=== PATIENT | female | born 1985 | race Caucasian/White ===

== ENCOUNTER 2023-08-21 00:35 | Observation (INO) | payer OTHER ==
--- NOTE | 2023-08-21 00:51 | ED ---
General Adult HPI - General Stated complaint: Altered Mental Time Seen by Provider: 08/21/23 00:48 - History of Present Illness Initial comments: Is a 38-year-old female who reports a history of alcohol abuse sent to the emergency department today from [facility] for evaluation of altered mental status. Staff at [facility] had reported to us that she has been reversed for over 24 hours seemed to be appropriate for first 24 hours and has become pro gressively more confused and having odd behavior so they sent her to the ER for evaluation. Patient states that she is there under her own free will she is allowed to leave ad frankie., she states that she left at 3 AM and have alcohol. Upon arrival patient believes she is in [facility] cannot tell us the year does know she is at [facility] does know that she is an alcoholic. Denies other drug use. - Related Data Allergies Allergy/AdvReac Type Severity Reaction Status Date / Time Penicillins Allergy Rash/Hives Verified 08/21/23 01:17 Review of Systems ROS Statement: Those systems with pertinent positive or pertinent negative responses have been documented in the HPI. ROS Other: All systems not noted in ROS Statement are negative. General Exam - General Exam Comments Initial Comments: Physical Exam GENERAL: Patient is well-developed and well-nourished. Patient is nontoxic and well-hydrated and is in no distress. HENT: Normocephalic, Atraumatic. EYES: PERRL, EOMI PULMONARY: Unlabored respirations. CARDIOVASCULAR: RRR Warm and well perfused extremities ABDOMEN: Non-distended SKIN: No rashes or bruising : Deferred NEUROLOGIC: Alert and oriented to person only Normal speech Normal gait MUSCULOSKELETAL: Moving all extremities with no apparent injury PSYCHIATRIC: No SI/HI Course Vital Signs 08/21/23 08/21/23 00:51 06:32 Temperature 98.7 F Pulse Rate 85 55 L Respiratory 18 16 Rate Blood Pressure 116/75 110/77 O2 Sat by Pulse 97 95 Oximetry EKG Findings - EKG Comments: EKG Findings:: EKG interpreted by me EKG obtained as part of the altered mental status workup EKG obtained at 1:49 AM rate is 60 rhythm is sinus with a short WA WA 106 QRS 82 QTc [address] elevations or depressions no evidence of ischemia or infarction. - EKG Results: EKG: interpreted by JEFF Medical Decision Making - Medical Decision Making Was pt. sent in by a medical professional or institution (, WILLI, INTEGRATED SPECIALIST, urgent care, hospital, or care home...) When possible be specific @ -Yes sent from [facility] Did you speak to anyone other than the patient for history (EMS, parent, family, police, friend...)? What history was obtained from this source [facility] Did you review nursing and triage notes (agree or disagree)? Why? @ -I reviewed and agree with nursing and triage notes Were old charts reviewed (outside hosp., previous admission, EMS record, old EKG, old radiological studies, urgent care reports/EKG's, care home records)? Report findings @ -No old charts available Differential Diagnosis (chest pain, altered mental status, abdominal pain women, abdominal pain men, vaginal bleeding, weakness, fever, dyspnea, syncope, headache, dizziness, GI bleed, back pain, seizure, CVA, palpatations, mental health)? @ -Differential Altered Mental Status: Hypoglycemia, DKA, hypercapnia, ETOH, overdose, CO poisoning, trauma, myxedema coma, HTN encephalopathy, infection, encephalitis, psychosis, intercranial hemorrhage, hepatic encephalopathy, meningitis, CVA, this is not meant to be an all-inclusive list EKG interpreted by me (3pts min.). @ -As above X-rays interpreted by me (1pt min.). @ -None done CT interpreted by me (1pt min.). @ -CT head with no acute findings, no mass no bleed U/S interpreted by me (1pt. min.). @ -None done What testing was considered but not performed or refused? (CT, X-rays, U/S, labs)? Why? @ -None What meds were considered but not given or refused? Why? @ -None Did you discuss the management of the patient with other professionals (professionals i.e. , WILLI, INTEGRATED SPECIALIST, lab, RT, psych nurse, social studies teacher, circular sawyer stone, teacher, boat officer, case monitor)? Give summary @ -No Was smoking cessation discussed for >3mins.? @ -No Was critical care preformed (if so, how long)? @ -No Were there social determinants of health that impacted care today? How? (Homelessness, low income, unemployed, alcoholism, drug addiction, transportation, low edu. Level, literacy, decrease access to med. care, fpc, rehab)? @ -No Was there de-escalation of care discussed even if they declined (Discuss DNR or withdrawal of care, Hospice)? DNR status @ -No What co-morbidities impacted this encounter? (DM, HTN, Smoking, COPD, CAD, Cancer, CVA, ARF, Chemo, Hep., AIDS, mental health diagnosis, sleep apnea, morbid obesity)? @ -None Was patient admitted / discharged? Hospital course, mention meds given and route, prescriptions, significant lab abnormalities, going to OR and other pertinent info. @ -Admit The patient was seen and evaluated, history is obtained from the patient, EMS and staff at [facility]. Patient offers no real meaningful history she does admit to being an alcohol user states she had last drink in the past 24 hours. Labs and head CT were obtained. Blood work is relatively unremarkable, urinalysis has patient positive for multiple drugs I suspect her altered mental status is due to polypharmacy. We will place the patient in the observation to allow her to sober up and reassess her mental status. Undiagnosed new problem with uncertain prognosis? @ -No Drug Therapy requiring intensive monitoring for toxicity (Heparin, Nitro, Insulin, Cardizem)? @ -No Were any procedures done? @ -No Diagnosis/symptom? @ -Altered mental status Acute, or Chronic, or Acute on Chronic? @ -Acute Uncomplicated (without systemic symptoms) or Complicated (systemic symptoms)? @ -Default Side effects of treatment? @ -No Exacerbation, Progression, or Severe Exacerbation? @ -No Poses a threat to life or bodily function? How? (Chest pain, USA, ND, pneumonia, PE, COPD, DKA, ARF, appy, cholecystitis, CVA, Diverticulitis, Homicidal, Suicidal, threat to staff... and all critical care pts) @ -No - Lab Data Result diagrams: 08/21/23 01:14 08/21/23 01:14 Lab Results 08/21/23 08/21/23 08/21/23 Range/Units 01:14 01:14 01:14 WBC 8.7 (3.8-10.6) k/uL RBC 3.75 L (3.80-5.40) m/uL Hgb 12.2 (11.4-16.0) gm/dL Hct 36.7 (34.0-46.0) % MCV 97.8 (80.0-100.0) fL MCH 32.6 (25.0-35.0) pg MCHC 33.3 (31.0-37.0) g/dL RDW 13.8 (11.5-15.5) % Plt Count 143 L (150-450) k/uL MPV 7.4 Neutrophils % 70 % Lymphocytes % 23 % Monocytes % 5 % Eosinophils % 1 % Basophils % 1 % Neutrophils # 6.0 (1.3-7.7) k/uL Lymphocytes # 2.0 (1.0-4.8) k/uL Monocytes # 0.4 (0-1.0) k/uL Eosinophils # 0.1 (0-0.7) k/uL Basophils # 0.0 (0-0.2) k/uL PT 10.5 (10.0-12.5) sec INR 0.9 (<1.2) APTT 22.8 (22.0-30.0) sec Sodium 137 (137-145) mmol/L Potassium 4.2 (3.5-5.1) mmol/L Chloride 103 (98-107) mmol/L Carbon Dioxide 28 (22-30) mmol/L Anion Gap 6 mmol/L BUN 18 H (7-17) mg/dL Creatinine 0.67 (0.52-1.04) mg/dL Est GFR (CKD-EPI)AfAm >90 (>60 ml/min/1.73 sqM) Est GFR (CKD-EPI)NonAf >90 (>60 ml/min/1.73 sqM) Glucose 86 (74-99) mg/dL POC Glucose (mg/dL) (70-110) mg/dL POC Glu Tool [employer] Level Five ID Calcium 10.1 (8.4-10.2) mg/dL Total Bilirubin 0.7 (0.2-1.3) mg/dL AST 56 H (14-36) U/L ALT 29 (4-34) U/L Alkaline Phosphatase 60 (38-126) U/L Ammonia (<30) umol/L Total Protein 6.9 (6.3-8.2) g/dL Albumin 4.2 (3.5-5.0) g/dL Urine Opiates Screen (NotDetected) Ur Oxycodone Screen (NotDetected) Urine Methadone Screen (NotDetected) Ur Barbiturates Screen (NotDetected) U Tricyclic Antidepress (NotDetected) Ur Phencyclidine Scrn (NotDetected) Ur Amphetamines Screen (NotDetected) U Methamphetamines Scrn (NotDetected) U Benzodiazepines Scrn (NotDetected) Urine Cocaine Screen (NotDetected) U Marijuana (THC) Screen (NotDetected) Serum Alcohol <10 mg/dL 08/21/23 08/21/23 08/21/23 Range/Units 02:00 04:47 06:49 WBC (3.8-10.6) k/uL RBC (3.80-5.40) m/uL Hgb (11.4-16.0) gm/dL Hct (34.0-46.0) % MCV (80.0-100.0) fL MCH (25.0-35.0) pg MCHC (31.0-37.0) g/dL RDW (11.5-15.5) % Plt Count (150-450) k/uL MPV Neutrophils % % Lymphocytes % % Monocytes % % Eosinophils % % Basophils % % Neutrophils # (1.3-7.7) k/uL Lymphocytes # (1.0-4.8) k/uL Monocytes # (0-1.0) k/uL Eosinophils # (0-0.7) k/uL Basophils # (0-0.2) k/uL PT (10.0-12.5) sec INR (<1.2) APTT (22.0-30.0) sec Sodium (137-145) mmol/L Potassium (3.5-5.1) mmol/L Chloride (98-107) mmol/L Carbon Dioxide (22-30) mmol/L Anion Gap mmol/L BUN (7-17) mg/dL Creatinine (0.52-1.04) mg/dL Est GFR (CKD-EPI)AfAm (>60 ml/min/1.73 sqM) Est GFR (CKD-EPI)NonAf (>60 ml/min/1.73 sqM) Glucose (74-99) mg/dL POC Glucose (mg/dL) 99 (70-110) mg/dL POC Glu Tool And Die Maker Level Five ID Jose Raya Calcium (8.4-10.2) mg/dL Total Bilirubin (0.2-1.3) mg/dL AST (14-36) U/L ALT (4-34) U/L Alkaline Phosphatase (38-126) U/L Ammonia 17 (<30) umol/L Total Protein (6.3-8.2) g/dL Albumin (3.5-5.0) g/dL Urine Opiates Screen Not Detected (NotDetected) Ur Oxycodone Screen Not Detected (NotDetected) Urine Methadone Screen Detected H (NotDetected) Ur Barbiturates Screen Not Detected (NotDetected) U Tricyclic Antidepress Detected H (NotDetected) Ur Phencyclidine Scrn Not Detected (NotDetected) Ur Amphetamines Screen Detected H (NotDetected) U Methamphetamines Scrn Not Detected (NotDetected) U Benzodiazepines Scrn Detected H (NotDetected) Urine Cocaine Screen Not Detected (NotDetected) U Marijuana (THC) Screen Detected H (NotDetected) Serum Alcohol mg/dL Disposition Clinical Impression: Altered mental status, Polysubstance abuse, Encephalopathy Disposition: ADMITTED IP TO THIS [facility] Condition: Stable Referrals: None,Stated [Primary Care Provider] - 1-2 days
[2023-08-21 01:35] LABS: Basophils % (A) 1 %; Eosinophils # (A) 0.1 k/uL (0-0.7); Eosinophils % (A) 1 %; HCT 36.7 % (34.0-46.0); HGB 12.2 gm/dL (11.4-16.0); Lymphocytes % (A) 23 %; MCH 32.6 pg (25.0-35.0); MCHC 33.3 g/dL (31.0-37.0); MCV 97.8 fL (80.0-100.0); Mean Platelet Volume 7.4; Monocytes # (A) 0.4 k/uL (0-1.0); Monocytes % (A) 5 %; Neutrophils % (A) 70 %; Platelet Count 143 k/uL (150-450); RBC 3.75 m/uL (3.80-5.40); RDW 13.8 % (11.5-15.5); WBC 8.7 k/uL (3.8-10.6)
[2023-08-21 01:47] LABS: ALT 29 U/L (4-34); AST 56 U/L (14-36); African American GFR (CKD) >90 (>60 ml/min/1.73 sqM); Albumin 4.2 g/dL (3.5-5.0); Alcohol <10 mg/dL; Alkaline Phosphatase 60 U/L (38-126); Anion Gap 6 mmol/L; Blood Urea Nitrogen 18 mg/dL (7-17); Calcium 10.1 mg/dL (8.4-10.2); Carbon Dioxide 28 mmol/L (22-30); Chloride 103 mmol/L (98-107); Glucose 86 mg/dL (74-99); Non-African American GFR(CKD) >90 (>60 ml/min/1.73 sqM); Potassium 4.2 mmol/L (3.5-5.1); Sodium 137 mmol/L (137-145); Total Bilirubin 0.7 mg/dL (0.2-1.3); Total Protein 6.9 g/dL (6.3-8.2)
[2023-08-21 01:57] LABS: INR 0.9 (<1.2)
[2023-08-21 01:58] LABS: Partial Thromboplastin Time 22.8 sec (22.0-30.0); Prothrombin Time 10.5 sec (10.0-12.5)
[2023-08-21 02:02] LABS: Glucose,Whole Blood 99 mg/dL (70-110)
--- NOTE | 2023-08-21 02:05 | XR ---
EXAM: XR Chest, 2 Views CLINICAL HISTORY: ITS.REASON XR Reason: altered mental status TECHNIQUE: Frontal and lateral views of the chest. COMPARISON: No relevant prior studies available. FINDINGS: Lungs: Unremarkable. No consolidation. Pleural space: Unremarkable. No pleural effusion or pneumothorax. Heart: Unremarkable. No cardiomegaly or pulmonary vascular congestion. Bones/joints: No acute fracture. No dislocation. IMPRESSION: No evidence of acute cardiopulmonary disease.
[2023-08-21] MEDS: SODIUM CHLORIDE 0.9% 500 ML 500 ML IV ONE (03:08)
[2023-08-21 06:42] VITALS: RESP 16
[2023-08-21 07:07] LABS: Amphetamine Screen,Urine Detected (NotDetected); Benzodiazepines Screen,Urine Detected (NotDetected); Cocaine Screen,Urine Not Detected (NotDetected); Opiate Screen,Urine Not Detected (NotDetected); Phencyclidine Screen,Urine Not Detected (NotDetected); Tricyclic Antidepressant,Urine Detected (NotDetected)
[2023-08-21 07:08] LABS: Barbiturate Screen,Urine Not Detected (NotDetected); Methadone Screen, Urine Detected (NotDetected); Oxycodone Screen, Urine Not Detected (NotDetected); Urn Cannabinoid Scrn Detected (NotDetected)
--- NOTE | 2023-08-21 07:37 | CT ---
EXAMINATION TYPE: CT brain wo con DATE OF EXAM: 08/21/2023 COMPARISON: INDICATION: AMS/etoh withdrawal - brought by EMS from [facility] States last drink was 0637 Wednesday morning Pt. believes that we are in [facility] DLP: 1079.8 mGycm, Automated exposure control for dose reduction was used. CONTRAST: None CT of the brain is performed utilizing 3 mm thick sections through the posterior fossa and 3 mm thick sections through the remaining calvarium. Study is performed within 24 hours of arrival to the hosp ital. No abnormal hyperdensity is present to suggest an acute intracranial hemorrhage. No mass lesion is evident. No acute infarcts are evident. Ventricles and sulci are appropriate for the patient age. There is left septal deviation. Opacification of the posterior left ethmoid air cells noted. Remainin g paranasal sinuses and mastoid air cells are clear. IMPRESSION: 1. No acute intracranial process is radiographically apparent. Follow-up MRI can be performed as cl inically indicated
[2023-08-21] MEDS ORDERED: NALOXONE 0.4 MG/ML 1 ML VIAL IV PRN (08:12)
[2023-08-21] MEDS ORDERED: LORazepam 2 MG/ML INJ IV PRN ×4 (08:22)
[2023-08-21] MEDS ORDERED: diphenhydrAMINE 25 MG CAP PO PRN (10:23)
[2023-08-21] MEDS ORDERED: IBUPROFEN 600 MG TAB PO PRN (10:23)
[2023-08-21] MEDS ORDERED: MAG HYDROX/AL HYDROX/SIMETH 30 ML CUP PO PRN (10:23)
[2023-08-21] MEDS ORDERED: DOCUSATE 100 MG CAP PO PRN (10:23)
[2023-08-21] MEDS ORDERED: ACETAMINOPHEN TAB 325 MG TAB PO PRN (10:23)
[2023-08-21] MEDS ORDERED: ONDANSETRON 4 MG TAB PO PRN (10:23)
[2023-08-21] MEDS ORDERED: LOPERAMIDE 2 MG CAP PO PRN (10:23)
[2023-08-21] MEDS ORDERED: LORazepam 1 MG TAB PO PRN (10:23)
[2023-08-21] MEDS ORDERED: HYOSCYAMINE SULFATE 0.125 MG TAB PO PRN (10:23)
[2023-08-21] MEDS ORDERED: MULTIVITAMINS, THERA 1 EACH TAB PO PRN (10:23)
[2023-08-21] MEDS ORDERED: THIAMINE 100 MG TAB PO SCH (10:30)
[2023-08-21] MEDS: METHADONE 10 MG TAB PO STA (11:36)
[2023-08-21] MEDS: MULTIVITAMINS, THERA 1 EACH TAB PO SCH (11:36)
[2023-08-21] MEDS: FOLIC ACID 1 MG TAB PO SCH (11:36)
[2023-08-21] MEDS: buPROPion XL 150 MG TAB.ER.24H PO STA (11:36)
[2023-08-21] MEDS: THIAMINE 100 MG/ML 2 ML VIAL IM STA (11:40)
--- NOTE | 2023-08-21 11:52 | P.HPIM ---
History of Present Illness H&P Date: 08/21/23 Chief Complaint: Confusion 38-year-old woman with history of polysubstance abuse, chronic narcotic dependence on methadone therapy, presented from [place] due to episodes of confusion. The patient is a poor historian and is not clear as to why she was sent into the hospital. However from chart review, my understanding is that patient was sent in by staff after having showed some progressively confused and odd behavior. The patient herself reports that she feels totally back to normal, has had no visual hallucinations, confusion, episodes of disorientation since her observation admission began. She thinks it is possible that when the medication she received from [place] had caused a temporary bout of confusion and disorientation which prompted their concern. At this time, she has no complaints. Upon evaluation, patient was afebrile, 123/62, heart rate 62, 97% on room air. CBC was remarkable for mild thrombocytopenia to 143. Basic metabolic panel is unremarkable. Liver function test show an AST to ALT elevation of 2-1 with values of 56-29. Alcohol level is less than 10. Ammonia level was 17. Urine tox screen is positive for methadone, tricyclic antidepressants, amphetamines, benzodiazepines, marijuana. Brain CT was unremarkable. Chest x-ray had no evidence of acute cardiopulmonary disease. EKG showed normal sinus rhythm with short MO interval. All Systems reviewed and pertinent positives and negatives noted in HPI, all other symptoms are negative Gen: in no apparent distress, resting comfortably in bed Eyes: PERRL, no scleral injection or icterus HENT: normocephalic, atraumatic, good hearing acuity, moist mucous membranes Neck: no tracheal deviation, full range of motion Resp: good air exchange, breathing comfortably with no accessory muscle use, no tactile fremitus CVS: good distal perfusion x 4, no pitting edema GI: soft, NTTP, ND, no hepatosplenomegaly : no suprapubic tenderness, no CVAT, novak catheter not present MSK: no clubbing, no cyanosis, no noted contractures of extremities Skin: no noted rashes, petechiae; temperature of skin is appropriate Neuro: moving all extremities without signs of weakness, CN II-XII intact Psych: cooperative, euthymic mood, insight and judgment intact Labs and imaging as above Assessment/plan: Encephalopathy, metabolic Chronic narcotic dependence (Likely secondary to polypharmacy and polysubstance abuse) -Patient appears to be back to baseline -Continue to monitor on telemetry -Resume home medications: Seroquel, methadone, Wellbutrin -Decrease Ativan as needed on discharge Patient is full code Medications and Allergies Home Medications Medication Instructions Recorded Confirmed Type Acetaminophen [Tylenol] 650 mg PO QID PRN MDD 2,600mg 08/21/23 08/21/23 History Calcium, Magnesium, Zinc, With D3 1 tab PO TID 08/21/23 08/21/23 History Chlorpheniramine Maleate 4 mg PO Q4H PRN 08/21/23 08/21/23 History [Chlor-Trimeton] Docusate [Colace] 100 mg PO BID PRN 08/21/23 08/21/23 History Hyoscyamine Sulfate [Levsin] 0.125 mg PO QID PRN 08/21/23 08/21/23 History Ibuprofen [Motrin Ib] 600 mg PO Q6H PRN 08/21/23 08/21/23 History LORazepam [Ativan] 1 - 2 mg PO Q4H PRN 08/21/23 08/21/23 History Loperamide HCl [Imodium A-D] 4 mg PO QID PRN MDD 16 mg 08/21/23 08/21/23 History Methadone HCl [Methadone Intensol] 100 mg PO DAILY@0730 08/21/23 08/21/23 History Multivitamins, Thera [Multivitamin 1 tab PO DAILY PRN 08/21/23 08/21/23 History (formulary)] Mylanta Regular Strength 30 ml PO Q4H PRN 08/21/23 08/21/23 History QUEtiapine FUMARATE [SEROquel XR] 300 mg PO HS@2100 08/21/23 08/21/23 History Thiamine [Vitamin B-1] 100 mg PO DAILY PRN 08/21/23 08/21/23 History buPROPion XL [Wellbutrin XL] 150 mg PO DAILY@0615 08/21/23 08/21/23 History ondansetron HCL [Zofran] 8 mg PO Q6H PRN 08/21/23 08/21/23 History Allergies Allergy/AdvReac Type Severity Reaction Status Date / Time Penicillins Allergy Rash/Hives Verified 08/21/23 10:04 Physical Exam Osteopathic Statement: *. No significant issues noted on an osteopathic structural exam other than those noted in the History and Physical/Consult. Vitals: Vital Signs Temp Pulse Pulse Resp BP BP Pulse Ox 08/21/23 09:37 97.8 F 62 16 123/62 97 08/21/23 06:32 55 L 16 110/77 95 08/21/23 00:51 98.7 F 85 18 116/75 97 Intake and Output 08/20/23 08/21/23 08/21/23 22:59 06:59 14:59 Other: Weight 43.091 kg Results CBC & Chem 7: 08/21/23 01:14 08/21/23 01:14 Labs: Abnormal Lab Results - Last 24 Hours (Table) 08/21/23 08/21/23 08/21/23 Range/Units 01:14 01:14 06:49 RBC 3.75 L (3.80-5.40) m/uL Plt Count 143 L (150-450) k/uL BUN 18 H (7-17) mg/dL AST 56 H (14-36) U/L Urine Methadone Screen Detected H (NotDetected) U Tricyclic Antidepress Detected H (NotDetected) Ur Amphetamines Screen Detected H (NotDetected) U Benzodiazepines Scrn Detected H (NotDetected) U Marijuana (THC) Screen Detected H (NotDetected)
[2023-08-21] MEDS: CHOLECALCIFEROL PO SCH (12:51)
[2023-08-21] MEDS: MAGNESIUM PO SCH (12:51)
[2023-08-21] MEDS: ZINC PO SCH (12:51)
[2023-08-21] MEDS: CALCIUM PO SCH (12:51)
[2023-08-21] MEDS ORDERED: LORazepam 1 MG/0.5 ML VIAL IV PRN ×3 (13:18→13:19)
[2023-08-21] MEDS: LORazepam 1 MG/0.5 ML VIAL IV PRN (13:33)
[2023-08-21 15:01] VITALS: BP 111/72; PULSE 63; TEMP 98.2
--- NOTE | 2023-08-21 17:10 | P.DS ---
Providers Date of admission: 08/21/23 08:12 Expected date of discharge: 08/21/23 Attending physician: Diego Duckworth MD Primary care physician: Stated None Hospital Course: Encephalopathy, metabolic Chronic narcotic dependence (Likely secondary to polypharmacy and polysubstance abuse) Hospital Course: 38-year-old woman with history of polysubstance abuse, chronic narcotic dependence on methadone therapy, presented from [place] due to episodes of confusion. Upon evaluation, patient was afebrile, 123/62, heart rate 62, 97% on room air. CBC was remarkable for mild thrombocytopenia to 143. Basic metabolic panel is unremarkable. Liver function test show an AST to ALT elevation of 2-1 with values of 56-29. Alcohol level is less than 10. Ammonia level was 17. Urine tox screen is positive for methadone, tricyclic antidepressants, amphetamines, benzodiazepines, marijuana. Brain CT was unremarkable. Chest x- ray had no evidence of acute cardiopulmonary disease. EKG showed normal sinus rhythm with short CT interval. Patient appeared to return to baseline with conservative management. Recommendations are to decrease Ativan as needed on discharge. Patient to go back to [place] for rehab. She should follow-up with her primary care physician. I spent 34 minutes coordinating this discharge All Systems reviewed and pertinent positives and negatives noted in HPI, all other symptoms are negative Gen: in no apparent distress, resting comfortably in bed Eyes: PERRL, no scleral injection or icterus HENT: normocephalic, atraumatic, good hearing acuity, moist mucous membranes Neck: no tracheal deviation, full range of motion Resp: good air exchange, breathing comfortably with no accessory muscle use, no tactile fremitus CVS: good distal perfusion x 4, no pitting edema GI: soft, NTTP, ND, no hepatosplenomegaly : no suprapubic tenderness, no CVAT, novak catheter not present MSK: no clubbing, no cyanosis, no noted contractures of extremities Skin: no noted rashes, petechiae; temperature of skin is appropriate Neuro: moving all extremities without signs of weakness, CN II-XII intact Psych: cooperative, euthymic mood, insight and judgment intact Patient Condition at Discharge: Good Plan - Discharge Summary New Discharge Prescriptions: New Folic Acid 1 mg PO DAILY #14 tab Continue Methadone HCl [Methadone Intensol] 100 mg PO DAILY@0730 Docusate [Colace] 100 mg PO BID PRN PRN Reason: Constipation Chlorpheniramine Maleate [Chlor-Trimeton] 4 mg PO Q4H PRN PRN Reason: allergies/runny nose Calcium, Magnesium, Zinc, With D3 1 tab PO TID buPROPion XL [Wellbutrin XL] 150 mg PO DAILY@0615 Acetaminophen [Tylenol] 650 mg PO QID PRN MDD 2,600mg PRN Reason: Pain Or Fever > 100.5 Thiamine [Vitamin B-1] 100 mg PO DAILY PRN PRN Reason: supplement/vitamin QUEtiapine FUMARATE [SEROquel XR] 300 mg PO HS@2100 Multivitamins, Thera [Multivitamin (formulary)] 1 tab PO DAILY PRN PRN Reason: vitamin Ibuprofen [Motrin Ib] 600 mg PO Q6H PRN PRN Reason: Pain Or Fever > 100.5 LORazepam [Ativan] 1 - 2 mg PO Q4H PRN PRN Reason: alcohol detox ondansetron HCL [Zofran] 8 mg PO Q6H PRN PRN Reason: Nausea/vomiting Hyoscyamine Sulfate [Levsin] 0.125 mg PO QID PRN PRN Reason: abdominal cramping Loperamide HCl [Imodium A-D] 4 mg PO QID PRN MDD 16 mg PRN Reason: Diarrhea Mylanta Regular Strength 30 ml PO Q4H PRN PRN Reason: antacid Discharge Medication List Acetaminophen [Tylenol] 650 mg PO QID PRN MDD 2,600mg 08/21/23 [History] Calcium, Magnesium, Zinc, With D3 1 tab PO TID 08/21/23 [History] Chlorpheniramine Maleate [Chlor-Trimeton] 4 mg PO Q4H PRN 08/21/23 [History] Docusate [Colace] 100 mg PO BID PRN 08/21/23 [History] Folic Acid 1 mg PO DAILY #14 tab 08/21/23 [Rx] Hyoscyamine Sulfate [Levsin] 0.125 mg PO QID PRN 08/21/23 [History] Ibuprofen [Motrin Ib] 600 mg PO Q6H PRN 08/21/23 [History] LORazepam [Ativan] 1 - 2 mg PO Q4H PRN 08/21/23 [History] Loperamide HCl [Imodium A-D] 4 mg PO QID PRN MDD 16 mg 08/21/23 [History] Methadone HCl [Methadone Intensol] 100 mg PO DAILY@0730 08/21/23 [History] Multivitamins, Thera [Multivitamin (formulary)] 1 tab PO DAILY PRN 08/21/23 [History] Mylanta Regular Strength 30 ml PO Q4H PRN 08/21/23 [History] QUEtiapine FUMARATE [SEROquel XR] 300 mg PO HS@2100 08/21/23 [History] Thiamine [Vitamin B-1] 100 mg PO DAILY PRN 08/21/23 [History] buPROPion XL [Wellbutrin XL] 150 mg PO DAILY@0615 08/21/23 [History] ondansetron HCL [Zofran] 8 mg PO Q6H PRN 08/21/23 [History] Follow up Appointment(s)/Referral(s): None,Stated [Primary Care Provider] - 1-2 days Discharge Disposition: OTHER INSTITUTION NOT DEFINED
[2023-08-21] MEDS ORDERED: QUEtiapine 100 MG TAB PO SCH (21:00)
[2023-08-22] MEDS ORDERED: buPROPion XL 150 MG TAB.ER.24H PO SCH (06:15)
[2023-08-22] MEDS ORDERED: METHADONE 10 MG TAB PO SCH (07:30)
[2023-08-22] MEDS ORDERED: THIAMINE 100 MG TAB PO SCH (09:00)
== END 2023-08-21 17:44 | disposition other institution (70) ==
LOC: EC 00:35 → 6NMEDSUR 08:12
PROVIDERS: ADMIT Student in an Organized Health Care Education/Training Program; ATTEND Student in an Organized Health Care Education/Training Program
DX: G93.41 Metabolic encephalopathy (principal); F11.20 Opioid dependence, uncomplicated; F19.10 Other psychoactive substance abuse, uncomplicated; F10.10 Alcohol abuse, uncomplicated; D69.6 Thrombocytopenia, unspecified; R74.01 Elevation of levels of liver transaminase levels; Z79.899 Other long term (current) drug therapy; Z88.0 Allergy status to penicillin
CPT/HCPCS: 96372; 96374; 96361; 99285; 36415; 93005; 80053; 82140; 85025; 85610; 85730; 80306; 71046; 70450; G0378; G0480; J2060; J3411; S0109; 80320